=== PATIENT | female | born 1955 | race Two or more races ===

== ENCOUNTER 2017-07-03 12:24 | Day surgery (SDC) | payer BC ==
--- NOTE | 2017-07-03 07:10 | History and Physical Report ---
DATE: 07/03/2017. CHIEF COMPLAINT AND HISTORY OF CHIEF COMPLAINT: This is a patient with a history of intractable cervical radiculitis. She had a spinal cord stimulator trial performed by Dr. Aroryo with up to 90 to 100 percent pain control. Due to the failure of all therapies and the success of the trial, she has been referred by Dr. Arroyo for implantation of a permanent system. PAST MEDICAL HISTORY: Sleep apnea, asthmatic bronchitis, osteoarthritis. SOCIAL HISTORY: Noncontributory. FAMILY HISTORY: Asthma, diabetes, coronary artery disease, and cancer. PAST SURGICAL HISTORY: Spinal cord stimulator trial, breast surgery. EMPLOYMENT STATUS: Off work. MEDICATIONS ON ADMISSION: To be provided. ALLERGIES: To be provided. REVIEW OF SYSTEMS: The patient seems appropriate and in no acute distress. The remainder of the systems review shows glasses, sleep disturbance, breathing difficulties, degenerative arthritis. PHYSICAL EXAMINATION: General: Height is 5 feet, 8 inches. Weight is 200 pounds. Vital Signs: Not available. HEENT: Within normal limits. Lungs: Clear. Heart: Regular rate and rhythm. Abdomen: Nontender. Musculoskeletal: Examination of the musculoskeletal system shows diffuse tenderness in the cervical spine, left greater than right. Range of motion does seem to produce pain into the neck and shoulder to the left. There is a mid thoracic component also identified. Functionality of the upper extremities is intact. No lower extremity involvement. Neurologic: Cranial nerves are intact. IMPRESSION: CERVICAL RADICULITIS, ICD-10 CODE M54.13. PLAN: This patient was referred to this facility and this practice for implantation of a permanent spinal cord stimulator after a successful trial. The potential risks, side effects, and complications have all been carefully reviewed and discussed including nerve root injury, spinal cord injury, and spinal headache from dural puncture. Information provided through the subsurface augmentee operator, [employer], had also been presented, reviewed, and discussed. All questions were answered. The plan is for a two-lead placement, one near the cervical region and one into the midthoracic region. The patient understands that there will be separate incisional sites. KRYSTEN DAVIES D.O. Date & Time JOB NUMBER: [id number] cc: Arcadio Arroyo M.D. MTDD
[~2017-07-03 12:24] MED LIST: ACETAMINOPHEN 1,000 MG/100 ML BTL IV ONE; CEFAZOLIN 2 Gram 2 GM/50 ML BAG IVPB ONE; FAMOTIDINE 20MG TABLET PO ONE; MECLIZINE 25 MG TABLET PO ONE; METOCLOPRAMIDE 10 MG TABLET PO ONE; VANCOMYCIN HCL 1,000 MG in 0.9 % SODIUM CHLORIDE 250ML 250 ML IVPB ONE
[2017-07-03] MEDS ORDERED: PROPOFOL 10 MG/ML VIAL IV ONE (12:25)
[2017-07-03] MEDS ORDERED: HYDROMORPHONE HCL 2 MG/ML VIAL IV ONE (12:25)
[2017-07-03] MEDS ORDERED: LIDOCAINE 2% MDV (20MG/ML) 20ML VIAL IV ONE (12:25)
[2017-07-03] MEDS ORDERED: VANCOMYCIN HCL 500 MG VIAL IV ONE (12:25)
[2017-07-03] MEDS ORDERED: FENTANYL PF 100MCG/2ML VIAL IV ONE (12:25)
[2017-07-03] MEDS ORDERED: LIDOCAINE 1% W/EPI 1:200,000 MPF 30ML SQ ONE (12:25)
[2017-07-03] MEDS ORDERED: BUPIVACAINE 0.75% W/EPI MPF 30ML VIAL IVP ONE (12:25)
[2017-07-03] MEDS ORDERED: MIDAZOLAM HCL 2MG/2ML VIAL IV ONE (12:25)
[2017-07-03] MEDS ORDERED: AL HYDROX/MAG HYDROX 30ML UD PO PRN (16:45)
[2017-07-03] MEDS ORDERED: HYDROMORPHONE HCL 2 MG/ML VIAL IM PRN (16:45)
[2017-07-03] MEDS ORDERED: SENNOSIDES/DOCUSATE SODIUM UD CAPSULE PO PRN ×2 (16:45)
[2017-07-03] MEDS ORDERED: DIPHENHYDRAMINE HCL 25 MG CAPSULE PO PRN ×2 (16:45)
[2017-07-03] MEDS ORDERED: DIPHENHYDRAMINE HCL IV 50 MG/ML VIAL IVP PRN ×2 (16:45)
[2017-07-03] MEDS ORDERED: METOCLOPRAMIDE 10 MG TABLET PO PRN (16:45)
[2017-07-03] MEDS ORDERED: METOCLOPRAMIDE HCL 10 MG/2 ML VIAL IVP PRN (16:45)
[2017-07-03] MEDS ORDERED: HYDROCODONE/APAP 7.5/325MG TABLET PO PRN (16:45)
[2017-07-03] MEDS ORDERED: HYDROMORPHONE HCL 1 MG/ML CPJ IM PRN (16:45)
[2017-07-03] MEDS ORDERED: ACETAMINOPHEN 325 MG TAB PO PRN ×2 (16:45)
[2017-07-03] MEDS ORDERED: OXYCODONE/APAP 10MG-325MG TABLET PO PRN ×2 (16:45)
[2017-07-03] MEDS ORDERED: TEMAZEPAM 15 MG CAPSULE PO PRN ×2 (16:45)
[2017-07-03] MEDS ORDERED: METAXALONE 800 MG PO PRN (16:54)
[2017-07-03] MEDS: WELCHOL 625 MG PO SCH (17:15)
[2017-07-03] MEDS: PATIENT OWN MED: METFORMIN 1000 MG PO SCH (17:15)
[2017-07-03] MEDS: BUSPIRONE 15 MG PO SCH (21:17)
[2017-07-03] MEDS ORDERED: ESZOPICLONE 3 MG PO SCH (22:00)
[2017-07-03] MEDS ORDERED: 0.9 % SODIUM CHLORIDE 10ML SYR IVP SCH (22:00)
[2017-07-03] MEDS ORDERED: QUETIAPINE 50 MG PO SCH (22:00)
[2017-07-03] MEDS ORDERED: PATIENT OWN MED: MONTELUKAST 10 MG PO SCH (22:00)
[2017-07-03] MEDS ORDERED: ALPRAZOLAM 2 MG PO SCH (22:00)
[2017-07-04] MEDS ORDERED: VANCOMYCIN HCL 1,000 MG in 0.9 % SODIUM CHLORIDE 250ML 250 ML IVPB ONE (01:15)
[2017-07-04] MEDS: HYDROCODONE/APAP 7.5/325MG TABLET PO PRN ×2 (02:31→08:17)
--- NOTE | 2017-07-04 07:44 | Operative Note - [place] ---
DATE OF SURGERY: 07/03/2017. PREOPERATIVE DIAGNOSIS: 1. CERVICAL RADICULITIS, ICD-10 CODE M54.13. 2. THORACIC RADICULITIS, ICD-10 CODE M54.14. POSTOPERATIVE DIAGNOSIS: 1. CERVICAL RADICULITIS, ICD-10 CODE M54.13. 2. THORACIC RADICULITIS, ICD-10 CODE M54.14. OPERATION: 1. FLUOROSCOPICALLY GUIDED ACCESS, EPIDURAL, SPACE T3-4, PLACEMENT OF SPINAL CORD STIMULATOR IDENTIFIED [employer] TREVOR OCTAPOLAR WITH 8 ELECTRODES INSERTED LEFT UPPER ELECTRODE C2. 2. COMPLEX PROGRAMMING OF LEAD 1 FOR 20 MINUTES. 3. FLUOROSCOPICALLY GUIDED EPIDURAL ACCESS T10-11. INSERTION OF SPINAL CORD STIMULATOR LEAD 2, A [employer]REVOR OCTAPOLAR WITH 8 ELECTRODES INSERTED LEFT T-5. 4. COMPLEX PROGRAMMING OF LEAD 2 FOR 20 MINUTES. 5. INCISION, SUBCUTANEOUS DISSECTION, AND ANCHORING OF LEAD 1 TO SUPRASPINOUS FASCIA USING A [employer] TREVOR LOCKING ANCHOR. 6. INCISION, SUBCUTANEOUS DISSECTION, AND ANCHORING OF SPINAL CORD STIMULATOR LEAD 2 TO SUPRASPINOUS FASCIA WITH A [employer] TREVOR LOCKING ANCHOR. 7. TUNNELING OF LEAD 1 INTO LEAD 2 POUCH. 8. INCISION, SUBCUTANEOUS DISSECTION, AND CREATION OF SUBCUTANEOUS POUCH AT LEFT POSTERIOR GLUTEAL MARGIN FOR PLACEMENT OF GENERATOR IDENTIFIED A [employer] TREVOR NON-RECHARGEABLE. 9. TUNNELING BETWEEN LEAD 2 POUCH INTO GENERATOR POUCH EXTENDING LEAD 1 AND LEAD 2 INTO GENERATOR POUCH, EACH LEAD INTERFACED WITH GENERATOR. 10. CLOSURE OF INCISIONS WITH VICRYL FOR THE FASCIA AND SUBCUTICULAR VICRYL FOR THE SKIN. DERMABOND CLOSURE APPROXIMATED THE EDGES OF ALL WOUNDS. 11. COMPLEX RECOVERY ROOM PROGRAMMING OF THE INTERNAL GENERATOR, HOME USE, TWO STIMULATORS FOR 20 MINUTES. SURGEON: Krysten Bonilla D.O. ANESTHESIA: Local sedation. ANESTHESIA PROVIDER: Hood Garcia CRNA.T INDICATION: This patient presents with pain which is left sided in the neck and shoulder as well as scapula. A successful trial through Dr. Arroyo and Dr. Caal in [place] resulted in this patient being referred to this facility for implant. PROCEDURE: Intravenous line, vital sign monitoring, and intravenous sedation. Prepped and draped with sterile technique. The patient was positioned on the operating table prone. The epidural interspace at T3-4 was identified. The skin was infiltrated and then a standard epidural needle was placed with loss of resistance into the space. Spinal cord stimulator lead 1, a [employer] Octapolar with eight electrodes, was advanced left of the midline and positioned with the upper electrode at C-2. Complex programming of lead 1 over 20 minutes resulted in a pattern of stimulation which extended from the left side of the patient's neck and shoulder. The patient indicated we were in the appropriate areas. The skin above and below the needle was infiltrated. An incision was made and subcutaneous dissection was conducted to the supraspinous fascia. Using a [employer] locking anchor, the lead was anchored to the supraspinous fascia, after the needle was removed, with nonabsorbable suture. At T10-11, the skin was infiltrated. Using a curved-access Epimed needle with loss of resistance, the epidural space was accessed. Spinal cord stimulator lead 2, a [employer] Octapolar with eight electrodes, was advanced left of the midline and positioned with the upper electrode at T-5. Complex programming of lead 2 over 20 minutes resulted in a pattern of stimulation which seemed to run into the left midscapular border. The patient indicated we had the area of her worst pain controlled. At that point, she was given the options to implant both leads, continue to program until we had satisfactory results, or remove the leads. She opted to implant. The skin above and below the needle at T10-11 was infiltrated. An incision was made and subcutaneous dissection was conducted to the supraspinous fascia. The lead was then anchored to the fascia with a [employer] locking anchor once the needle was removed. Lead 1 was then tunneled into the lead 2 pouch with a tunneling device. At the left posterior gluteal margin, a site picked by the patient for the generator identified as a Using a [employer] nonrechargeable, the skin was infiltrated. An incision was made and subcutaneous dissection was conducted to form a pouch of suitable size and depth for the generator. A tunneling tool was then used to carry the two leads from the second stimulator pouch into the generator pouch. Each lead was then directly interfaced to the generator. Antibiotic irrigation and Bovie for hemostasis at all sites. The generator was secured to the posterior fascia of the pouch with a nonabsorbable suture. All three incisions were then closed with Vicryl to the fascia and running subcuticular Vicryl for the skin and then Dermabond closure. She was then transported to the recovery room, stable showing no side effects from the procedure or the sedation. When fully awake and alert, complex programming of the generator was performed in the recovery over 20 minutes, re- establishing stimulation of pain control to all of the appropriate areas. Because of her hour and a half to two hour drive home and the time of day, she will be kept overnight for observation and pain control. She will then be discharged in the morning. DISCHARGE INSTRUCTIONS: 1. The sites are to remain clean and dry. No showering or bathing in any way that would disrupt dressings. If this happens, contact the clinic. 2. Standard medications are to be resumed including Levaquin the antibiotic 500 mg once a day for 14 days. 3. She was requesting pain medication. She was issued a prescription for Bokoshe 7.5/325 mg, a maximum of five a day for ten days, total number of 50 pills. She has been advised on how to use the medication and not to overuse the medication. 4. All other instructions were provided. Numbers to contact with problems were given. 5. She will be discharged in the morning. KRYSTEN BONILLA D.O. Date & Time JOB NUMBER: [id number] cc: Anaid Gorman Dr.
[2017-07-04] MEDS: WELCHOL 625 MG PO SCH (08:17)
[2017-07-04] MEDS: PATIENT OWN MED: METFORMIN 1000 MG PO SCH (08:17)
[2017-07-04] MEDS: BUSPIRONE 15 MG PO SCH (08:19)
--- NOTE | 2017-07-04 09:09 | RADIOLOGY REPORT ---
EXAM: CERVICOTHORACIC SPINE, SINGLE VIEW HISTORY: PAIN STIMULATOR IMPLANT. TECHNIQUE: A single AP portable supine view of the thoracic and cervical portions of the spine is obtained. Comparison: Same day intraoperative radiographs of the cervical spine obtained at 13:40. FINDINGS: There is normal bone mineralization. No fracture nor destructive bone lesion is seen. There is minimal levocurvature of the upper thoracic spine. Interspinal stimulator leads are in place. The most superiorly located of these appears to enter the spinal canal at the T2-T3 level and its tip is at the C2 level. The more inferiorly positioned stimulator lead is not entirely imaged and its entrance into the spinal canal is indeterminate. Its tip is at the T4-T5 level. No lung consolidation nor pneumothorax. IMPRESSION: 1. INTERSPINAL STIMULATOR LEADS IN PLACE, DISCUSSED ABOVE. 2. MINIMAL LEVOCONVEX CURVATURE OF THE UPPER THORACIC SPINE. JOB NUMBER: [id number] MTDD
[2017-07-04] MEDS ORDERED: ALPRAZOLAM 1 MG PO SCH (10:00)
[2017-07-04] MEDS ORDERED: PAROXETINE 40 MG PO SCH (10:00)
== END 2017-07-04 09:20 | disposition home or self-care (01) ==
LOC: SUR 12:24 → MEDSURG 16:22 → SUR 07-04 09:20
PROVIDERS: ATTEND Pain Medicine Interventional Pain Medicine
DX: M54.13 Radiculopathy, cervicothoracic region (principal); M54.14 Radiculopathy, thoracic region; E11.9 Type 2 diabetes mellitus without complications; Z79.84 Long term (current) use of oral hypoglycemic drugs; E78.00 Pure hypercholesterolemia, unspecified; J44.9 Chronic obstructive pulmonary disease, unspecified
CPT/HCPCS: 95972; 36416; 82948; 72020; 63685; 63650 ×2; 01936; J3370 ×2; J3010; J1170 ×2; J3490; J7050